=== PATIENT | female | born 1995 | race Two or more races ===

== ENCOUNTER 2022-08-14 09:01 | Emergency (ER) | payer OTHER ==
[~2022-08-14] VITALS: Ht 162.6 cm; Wt 61.3 kg
[2022-08-14 09:34] VITALS: BP 113/70
[2022-08-14] MEDS ORDERED: ACETAMINOPHEN 325 MG TAB PO ONE (09:45)
[2022-08-14] MEDS ORDERED: IBUP600T27 PO (10:43)
[2022-08-14] MEDS ORDERED: METH500T22 PO (10:43)
== END 2022-08-14 10:48 | disposition home or self-care (01) ==
LOC: ER 09:01
DX: S39.012A Strain of muscle, fascia and tendon of lower back, initial encounter (principal); S46.912A Strain of unspecified muscle, fascia and tendon at shoulder and upper arm level, left arm, initial encounter; S16.1XXA Strain of muscle, fascia and tendon at neck level, initial encounter; V43.52XA Car driver injured in collision with other type car in traffic accident, initial encounter; Y93.89 Activity, other specified; Y92.410 Unspecified street and highway as the place of occurrence of the external cause; Y99.8 Other external cause status
CPT/HCPCS: 72100; 73030